=== PATIENT | female | born 1955 ===

== ENCOUNTER 2018-01-16 08:20 | Day surgery (SDC) | payer MEDICAID ==
[2018-01-15 14:02] VITALS: BMI 27.4
--- NOTE | 2018-01-16 09:29 | CP.SDSHP ---
Same Day Surgery H & P - History Proposed Procedure: colonoscopy - Previous Medical/Surgical History Cardiac: Hypertension - Allergies Allergies: Allergies No Known Allergies Allergy (Verified 01/15/18 14:01) - Physical Exam Vital Signs: Vital Signs 01/16/18 08:45 Temperature 97.7 F Pulse Rate 104 H Respiratory 18 Rate Blood Pressure 132/72 O2 Sat by Pulse 100 Oximetry - Date & Time Date: 01/16/18 Time: 09:28 Short Stay Discharge - Short Stay Discharge Admitting Diagnosis/Reason for Visit: SCREENING Disposition: HOME/ ROUTINE
[2018-01-16] MEDS ORDERED: Propofol 10 mg/ml Inj (20 ML) ONE (10:02)
[2018-01-16] MEDS ORDERED: Lactated Ringer's 500 ML IV ONE ×2 (10:03)
[2018-01-16] MEDS ORDERED: Lactated Ringer's 500 ML IV SCH (10:15)
[2018-01-16 12:20] VITALS: BP 127/79; PULSE 88; RESP 21; TEMP 97.1; O2SAT 97
== END 2018-01-16 12:15 | disposition home or self-care (01) ==
LOC: C.ENDO 08:20
PROVIDERS: ATTEND Colon & Rectal Surgery
DX: Z12.11 Encounter for screening for malignant neoplasm of colon (principal); K57.30 Diverticulosis of large intestine without perforation or abscess without bleeding; K64.8 Other hemorrhoids
CPT/HCPCS: 45378; J2704; J3010; J7120